=== PATIENT | male | born 1990 | race Caucasian/White ===

== ENCOUNTER 2023-07-16 03:04 | Emergency (ER) | payer BC ==
[~2023-07-16] VITALS: Ht 162.6 cm; Wt 51.7 kg
[2023-07-16] MEDS ORDERED: FAMOTIDINE (20 MG) 20 MG TABLET ONE (05:25)
[2023-07-16] MEDS ORDERED: FAMOTIDINE (20 MG) 20 MG TABLET PO ONE (05:30)
[2023-07-16] MEDS ORDERED: FAMO20TA8 PO (05:39)
[2023-07-16 06:05] VITALS: BP 120/87; TEMP 97.8; O2SAT 99
== END 2023-07-16 06:05 | disposition home or self-care (01) ==
LOC: ER 03:04
DX: K21.9 Gastro-esophageal reflux disease without esophagitis (principal); M79.10 Myalgia, unspecified site